=== PATIENT | female | born 1985 | race Caucasian/White ===

== ENCOUNTER 2017-02-07 20:11 | Emergency (ER) | payer MEDICAID ==
[2017-02-07 20:26] VITALS: TEMP 98.1
--- NOTE | 2017-02-07 21:28 | EDPHY ---
H & P Time Seen by Provider: 02/07/17 20:31 HPI/ROS: CHIEF COMPLAINT: right hand pain HISTORY OF PRESENT ILLNESS: 31-year-old female presents emergency department complaining of right hand and wrist pain x2 weeks. Patient has seen her primary care doctor twice and they think this is carpal tunnel. They sent her to the emergency department for a steroid injection. Patient reports pain is worse at night, numbness and tingling into her hand. 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 She is [id number]. She denies fevers or chills, no elbow pain Smoking Status: Never smoked Physical Exam: GEN: Awake, alert, oriented, no acute distress RESP: nl resp effort MSK: Right wrist with full range of motion, positive Tinel's, positive Phalen's , no swelling, no erythema, cap refill less than 3 seconds, 2+ radial pulses SKIN: No break in skin Constitutional: Initial Vital Signs Temperature (C) 36.7 C 02/07/17 20:20 Heart Rate 91 02/07/17 20:20 Respiratory Rate 18 02/07/17 20:20 Blood Pressure 118/93 H 02/07/17 20:20 O2 Sat (%) 100 02/07/17 20:20 O2 Delivery Mode Room Air Allergies/Adverse Reactions: No Known Allergies Allergy (Unverified 02/07/17 20:19) Home Medications: Medication Instructions Recorded Amphet Asp and D/Amphet [Adderall 02/07/17 20 mg (*)] Gabapentin [Neurontin 300 MG (*)] 300 mg PO Q8 PRN #20 cap 02/07/17 MDM/Departure - Depart Disposition: Home, Routine, Self-Care Clinical Impression: Right wrist pain Condition: Good Instructions: Paresthesia (ED) Additional Instructions: Rest, ice, elevate, wear your wrist splint at night, take 600 mg of ibuprofen every 8 hours with food. Take gabapentin 300 mg every 8 hours as needed for pain. Follow up with the hand specialist at 1st available appointment, call to schedule this appointment in the morning. Return to the emergency department for worsening symptoms, any other questions or concerns. Prescriptions: Gabapentin [Neurontin 300 MG (*)] 300 mg PO Q8 PRN #20 cap PRN Reason: Pain, Breakthrough Referrals: Khang Tobin MD [Medical Doctor] - As per Instructions (Hand doctor on-call )
[2017-02-07] MEDS ORDERED: GABAPENTIN 300 MG CAP PO ONE (21:38)
[2017-02-07 21:43] VITALS: BP 123/70; PULSE 66; RESP 16; O2SAT 96
== END 2017-02-07 21:42 | disposition home or self-care (01) ==
DX: M25.531 Pain in right wrist (principal)